=== PATIENT | female | born 1985 | race Caucasian/White ===

== ENCOUNTER 2021-06-18 16:27 | Emergency (ER) | payer MEDICAID ==
[~2021-06-18] VITALS: Ht 160 cm; Wt 63.5 kg
[~2021-06-18 16:27] MED LIST: NO HOME MEDS
--- NOTE | 2021-06-18 16:27 | NUR ---
BIB SELF C/O ABDOMINAL PAIN AND VOMITING STARTED YESTERDAY. PT IS 3 MONS . TO ER BED 16, HOOKED TO MONITOR, CHNAGED TO HOSP GOWN. WARM BLANKET PROVIDED. PATIENT AAO x 4, NOT IN DISTRESS. AWAITING MD PORTER
--- NOTE | 2021-06-18 16:46 | NUR ---
DR RUIZ AT BEDSIDE
[2021-06-18] MEDS ORDERED: ONDANSETRON HCL/PF 4 MG/2 ML VIAL IVP ONE (17:00)
[2021-06-18] MEDS ORDERED: IV NS 0.9% 1,000 ML BAG IV ONE (17:00)
[2021-06-18] MEDS ORDERED: MORPHINE SULFATE INJ 2 MG/ML DISP.SYRIN IV ONE ×2 (17:00→19:00)
--- NOTE | 2021-06-18 17:02 | NUR ---
SAVANA AT BEDSIDE
[2021-06-18] MEDS ORDERED: ONDANSETRON HCL/PF 4 MG/2 ML VIAL ONE (17:07)
[2021-06-18] MEDS ORDERED: MORPHINE SULFATE INJ 2 MG/ML DISP.SYRIN ONE ×2 (17:07→19:32)
[2021-06-18 17:32] LABS: BASOPHILS % (AUTO) 0.2 % (0.0-2.0); EOSINOPHILS % (AUTO) 0.8 % (0.0-6.0); HEMATOCRIT 42 % (33-45); LYMPHOCYTES # (AUTO) 1.2 K/uL (0.8-4.8); LYMPHOCYTES % (AUTO) 8.5 % (20.0-44.0); MEAN CORPUSCULAR HGB CONC 33 g/dl (31.0-36.0); MEAN CORPUSCULAR VOLUME 88 fL (82-100); MONOCYTES # (AUTO) 0.5 K/uL (0.1-1.30); MONOCYTES % (AUTO) 3.3 % (2.0-12.0); NEUTROPHILS # (AUTO) 12.4 K/uL (1.8-8.9); NEUTROPHILS % (AUTO) 87.2 % (43.0-81.0); PLATELET COUNT (AUTO) 138 K/uL (150-450); RED BLOOD CELL COUNT(AUTO) 4.77 MIL/uL (4.0-5.2); WHITE BLOOD COUNT (AUTO) 14.2 K/uL (4.3-11.0)
[2021-06-18 17:53] LABS: ALBUMIN 3.6 g/dL (3.4-5.0); BILIRUBIN,DIRECT 3.8 mg/dL (0.0-0.2); BILIRUBIN,TOTAL 5.1 mg/dL (0.2-1.0); POTASSIUM 3.5 mmol/L (3.5-5.1); TOTAL PROTEIN, SERUM 7.1 g/dL (6.4-8.2)
[2021-06-18 18:10] LABS: CALCIUM, SERUM 9.5 mg/dL (8.5-10.1)
--- NOTE | 2021-06-18 18:11 | NUR ---
URINE SAMPLE COLLECTED AND SENT TO LAB
--- NOTE | 2021-06-18 18:24 | NUR ---
called [facility] for possible transfer and was notified that the pt does not have a bed available
[2021-06-18 18:44] LABS: BILIRUBIN,URINE MODERATE (NEGATIVE); COLOR,URINE YELLOW (YELLOW); LEUKOCYTE ESTERASE ,URINE NEGATIVE (NEGATIVE); NITRITE, URINE NEGATIVE (NEGATIVE); PROTEIN,URINE 30 mg/dl (NEGATIVE); UGLUCOSE NEGATIVE (NEGATIVE); UROBILINOGEN,URINE 0.2 EU/dL (0.2)
[2021-06-18 18:52] LABS: BACTERIA,URINE 1+ /HPF (None Seen); FINE GRANULAR CASTS,URINE Few /LPF (None Seen); HYALINE CASTS, URINE Few /LPF (None Seen); RBC,URINE 21-50 /HPF (0-2)
[2021-06-18 18:53] LABS: COARSE GRANULAR CASTS,URINE Few /LPF (None Seen)
[2021-06-18] MEDS ORDERED: CEFTRIAXONE 1GM BAG (ER ONLY) 50 ML IV ONE (19:29)
[2021-06-18] MEDS ORDERED: CEFTRIAXONE 1GM BAG (ER ONLY) 1 GM/50 ML PIGGYBACK IV ONE (19:30)
--- NOTE | 2021-06-18 19:31 | NUR ---
DR DAVID WILKINSON, NO ANSWER, NOTED TO CALLED US BACK
--- NOTE | 2021-06-18 19:43 | NUR ---
CALLED [facility], THEY DO NOT HAVE [employer] DOCTORS.
--- NOTE | 2021-06-18 19:44 | NUR ---
DR HERNANDEZ ON PHONE CALL WITH ER MD RUIZ
--- NOTE | 2021-06-18 19:57 | NUR ---
SPOKE TO [facility], NO BEDS, [facility] TEAM FAX CLINICALS TO [phone]
[2021-06-18] MEDS ORDERED: IV NS 0.9% 1,000 ML IV ONE (20:00)
--- NOTE | 2021-06-18 20:04 | NUR ---
CALLED [facility] REGARDING POSSIBLE TRANSFER. FAX CLINICALS TO
--- NOTE | 2021-06-18 20:14 | NUR ---
FAXED FACESHEET AND CLINICALS TO [facility].
--- NOTE | 2021-06-18 20:16 | NUR ---
FAXED FACESHEET AND CLINICALS TO [facility].
--- NOTE | 2021-06-18 20:41 | NUR ---
CALLED [facility]. DR. RUIZ ON PHONE WITH TRANSFER
--- NOTE | 2021-06-18 20:56 | NUR ---
ER MD RUIZ ON PHONE CALL WITH REYNA
--- NOTE | 2021-06-18 21:17 | NUR ---
NO ACCEPTANCE AT [facility].
--- NOTE | 2021-06-18 23:59 | NUR ---
PER SEDA, NO AVAILABILITY AT [facility]
--- NOTE | 2021-06-19 00:10 | NUR ---
PT AMBULATORY TO RESTROOM IN NO DISTRESS. VSS.
[2021-06-19] MEDS ORDERED: diphenhydrAMINE HCL 50 MG/ML VIAL ONE (00:35)
[2021-06-19] MEDS ORDERED: diphenhydrAMINE HCL 50 MG/ML VIAL IV ONE (01:00)
--- NOTE | 2021-06-19 01:32 | NUR ---
PER MAC: [facility] DR TOMLINSON WILL PRESENT PATIENT TO MEDICAL TEAM AFTER 8AM
--- NOTE | 2021-06-19 01:53 | NUR ---
PER REYNA LO: NO BEDS AT [facility]
--- NOTE | 2021-06-19 04:07 | NUR ---
PT SLEEPING COMOFORTABLY. EASILY AROUSABLE. ALL V/S WNL.
--- NOTE | 2021-06-19 07:45 | NUR ---
ASSESSED PT ON BED AWAKE AND ALERT, NOT IN RESPIRATORY DISTRESS, V/S STABLE, KEPT RESTED AND COMFORTABLE. WILL CONTINUE TO MONITOR.
--- NOTE | 2021-06-19 09:35 | NUR ---
SPOKED TO [facility] LIVER TANSPLANT NURSE MARISSA. WILL UPDATE FACE SHEET AND BLOOD TEST. DR.LAW LEYVA.
--- NOTE | 2021-06-19 09:40 | NUR ---
URINE SPECIMEN COLLECTED AND SENT TO LAB.
--- NOTE | 2021-06-19 09:52 | NUR ---
ER PHLEB AT BEDSIDE FOR BLOOD DRAW.
[2021-06-19 10:14] LABS: BASOPHILS # (AUTO) 0.1 K/uL (0.0-0.2); BASOPHILS % (AUTO) 0.6 % (0.0-2.0); EOSINOPHILS % (AUTO) 1.2 % (0.0-6.0); HEMATOCRIT 34 % (33-45); HEMOGLOBIN 11.8 g/dL (11.5-14.8); LYMPHOCYTES # (AUTO) 2.4 K/uL (0.8-4.8); LYMPHOCYTES % (AUTO) 18.6 % (20.0-44.0); MEAN CORPUSCULAR HGB CONC 34 g/dl (31.0-36.0); MEAN CORPUSCULAR VOLUME 86 fL (82-100); MONOCYTES # (AUTO) 0.8 K/uL (0.1-1.30); MONOCYTES % (AUTO) 5.9 % (2.0-12.0); NEUTROPHILS # (AUTO) 9.6 K/uL (1.8-8.9); NEUTROPHILS % (AUTO) 73.7 % (43.0-81.0); PLATELET COUNT (AUTO) 169 K/uL (150-450); RED BLOOD CELL COUNT(AUTO) 3.98 MIL/uL (4.0-5.2); WHITE BLOOD COUNT (AUTO) 13.1 K/uL (4.3-11.0)
[2021-06-19 10:19] LABS: CALCIUM, SERUM 8.8 mg/dL (8.5-10.1); CARBON DIOXIDE 23 mmol/L (21-32); CHLORIDE 102 mmol/L (98-107); CREATININE 2.2 mg/dL (0.6-1.3); GLUCOSE 96 mg/dL (74-106); POTASSIUM 3.2 mmol/L (3.5-5.1); SODIUM SERUM 138 mmol/L (136-145); UREA NITROGEN, BLOOD 39 mg/dL (7-18)
[2021-06-19 10:25] LABS: ACETAMINOPHEN 0 ug/ml (10-30); ALANINE AMINOTRANSFERASE 17 U/L (12-78); ALBUMIN 2.8 g/dL (3.4-5.0); ALKALINE PHOSPHATASE 153 U/L (46-116); ASPARTATE AMINOTRANSFERASE 851 U/L (15-37); BILIRUBIN,TOTAL 4.2 mg/dL (0.2-1.0); TOTAL PROTEIN, SERUM 5.8 g/dL (6.4-8.2)
--- NOTE | 2021-06-19 12:43 | NUR ---
Patient does not wish to proceed with medical care recommended by Dr. dai. Patient given information related to possible complications, up to and including , which could occur as a result of leaving the hospital at this time. Patient verbalizes understanding of risks involved due to leaving against medical advice. Patient has signed AMA form.
[2021-06-19 12:44] VITALS: BP 121/61
--- NOTE | 2021-06-19 13:10 | NUR ---
[facility] MADE AWARE OF PATIENT GOING AGAINST MEDICAL ADVICE
== END 2021-06-19 12:45 | disposition left against medical advice (07) ==
LOC: ER 16:27
DX: O26.832 Pregnancy related renal disease, second trimester (principal); N17.9 Acute kidney failure, unspecified; Z3A.15 15 weeks gestation of pregnancy; O26.612 Liver and biliary tract disorders in pregnancy, second trimester; K72.00 Acute and subacute hepatic failure without coma; R10.9 Unspecified abdominal pain; Z90.49 Acquired absence of other specified parts of digestive tract; Z20.822 Contact with and (suspected) exposure to COVID-19
CPT/HCPCS: 36415 ×2; 76700; 76805; 80048; 80053; 80074; 80076; 80143; 80307; 81001; 83690; 85025 ×2; 85730; 87426; 96361 ×2; 96365; 96375 ×2; 96376; 99291; C9803 ×2; J0696; J1200; J2270 ×2; J2405; J7030; J7040; U0003